=== PATIENT | male | born 1955 | race Two or more races ===

== ENCOUNTER 2025-02-17 08:59 | Day surgery (SDC) | payer OTHER ==
[2025-02-17] MEDS ORDERED: LevoFLOXacin D5W 500 mg (100 mL) BAG ONE (11:58)
[2025-02-17] MEDS ORDERED: PROPOFOL 20 ML ONE (13:34)
[2025-02-17] MEDS ORDERED: fentaNYL PF 100 MCG/2 ML SYRINGE ONE (13:34)
[2025-02-17] MEDS ORDERED: Rocuronium Bromide 10 MG/ML (10ML VIAL) ONE (13:37)
[2025-02-17] MEDS ORDERED: Lidocaine 1% PF 5 ML VIAL ONE (13:37)
[2025-02-17] MEDS ORDERED: Glycopyrrolate 0.2 MG/ML 5 ML SYRINGE ONE (13:52)
[2025-02-17] MEDS ORDERED: SUGAMMADEX SODIUM 200 MG/2 ML VIAL ONE (14:36)
[2025-02-17] MEDS ORDERED: Ondansetron PF 4 MG/2 ML Vial ONE (14:41)
[2025-02-17] MEDS ORDERED: Oxybutynin 5 MG TAB ONE (14:58)
[2025-02-17] MEDS ORDERED: HYDROmorphone 0.5 MG/0.5 ML SYRINGE ONE (15:32)
== END 2025-02-17 17:19 | disposition home or self-care (01) ==
LOC: SDC 08:59
PROVIDERS: ATTEND Urology
PROC: 0TC08ZZ Extirpation of Matter from Right Kidney, Via Natural or Artificial Opening Endoscopic (ICD-10-PCS; principal; 2025-02-17)
PROC: 0T768DZ Dilation of Right Ureter with Intraluminal Device, Via Natural or Artificial Opening Endoscopic (ICD-10-PCS; 2025-02-17)
DX: N13.2 Hydronephrosis with renal and ureteral calculous obstruction (principal); F41.9 Anxiety disorder, unspecified; Z88.0 Allergy status to penicillin; Z88.1 Allergy status to other antibiotic agents; Z86.73 Personal history of transient ischemic attack (TIA), and cerebral infarction without residual deficits; Z79.01 Long term (current) use of anticoagulants; Z79.82 Long term (current) use of aspirin; Z79.899 Other long term (current) drug therapy
CPT/HCPCS: 82365; C9761; J1100; J1171; J1956; J2270; J2405; J2704; J3010; 88300